=== PATIENT | female | born 1955 | race Asian ===

== ENCOUNTER → 2024-02-04 09:22 | Outpatient (REF) | payer MEDICARE, OTHER, SELFPAY | LOC: HWRAD 09:22 | PROVIDERS: ATTENDING PHYSICIAN Nurse Practitioner Adult Health; REFERRING PHYSICIAN Registered Nurse | DX: Z78.0 Asymptomatic menopausal state (principal); Z12.31 Encounter for screening mammogram for malignant neoplasm of breast | CPT/HCPCS: 77063; 77067; 77080 ==